=== PATIENT | male | born 1980 | race Caucasian/White ===

== ENCOUNTER 2024-03-29 18:12 | Emergency (ER) | payer OTHER, SELFPAY ==
--- NOTE | 2024-03-29 18:20 | ED.URI ---
HPI - URI/Sore Throat General Chief Complaint: Upper Respiratory Infection Stated Complaint: Congestion/Body Aches Time Seen by Provider: 03/29/24 18:34 Source: patient and RN notes reviewed Mode of arrival: ambulatory Limitations: no limitations History of Present Illness HPI Narrative: 44-year-old male presents with concern for 2 day history of head congestion, body aches, low-grade fever. Reports he had a negative COVID test at home. He reports he has taken itwv-tum-wnwnaxo medications with little relief MD elicited complaint: cough and other (bodyaches) Related Data Allergies Allergy/AdvReac Type Severity Reaction Status Date / Time Penicillins Allergy Unknown rash Unverified 12/01/13 13:12 Review of Systems Review of Systems: CONSTITUTIONAL: Reports malaise, chills, sweats EYES: Denies visual changes, redness, or discharge. ENT: Reports rhinorrhea, congestion. Denies sinus pain, otalgia and sore throat. CARDIOVASCULAR: Denies chest pain, palpitations, or edema. RESPIRATORY: Denies cough. Denies dyspnea. GASTROINTESTINAL: Denies abdominal pain, nausea, vomiting, diarrhea SKIN: Denies rash or itching. MUSCULOSKELETAL: Reports myalgia. NEUROLOGIC: Denies headache. All systems reviewed & are unremarkable except as noted in HPI and below PMFSH Comments At time of signature, agree with nursing past medical, surgical, social and family history. There is no relevant family history pertinent to the presenting complaint Exam Narrative: GENERAL: Well-appearing, well-nourished, and in no acute distress. HEAD: Normocephalic EYES: PERRLA, conjunctivae clear ENT: Nares clear. Mucous membranes moist. TM pearly sepulveda with dull light reflex bilaterally; no tragal tenderness. Oropharynx not erythematous without lesions. Tonsils not enlarged and without exudate, no drooling, no hoarseness, no trismus, uvula midline. NECK: Supple. No lymphadenopathy CHEST: Clear to auscultation, breath sounds equal. No wheezing, rhonchi, rales, or stridor. No respiratory distress, speaks in full sentences. HEART: Regular rate and rhythm. No murmur heard. SKIN: Warm, dry, no rash. NEURO: Alert and oriented x3. PSYCH: Normal mood and affect Course Course Emergency Course: Patient is aware of diagnosis, understands and agrees to treatment plan. Anticipatory guidance given. Patient agrees to follow-up as directed and is aware of reasons to seek care at the emergency department. Portions of this record may have been created with voice recognition software Level of Care: Express Care Visit Vital Signs Vital signs: Reviewed. MDM - URI/Sore Throat MDM Narrative Medical decision making narrative: Differential diagnosis considered: [place] virus, strep pharyngitis, allergic rhinitis, upper respiratory tract infection, sinusitis, rhinosinusitis, nasopharyngitis. viral pharyngitis, otitis media, otitis externa, pneumonia, bronchitis, viral cough syndrome, viral syndrome, and influenza. Exam findings show no acute concerns or changes; patient is non-toxic appearing and is in no distress. Patient is appropriate for outpatient treatment and follow-up. Lab Data Attestation: I reviewed the patient's lab results. Critical Care Time Critical Care Time Critical Care Time: No Discharge Plan Discharge Clinical Impression: Acute viral syndrome Patient Disposition: Home, Self-Care Condition: Stable Instructions: Viral Syndrome (ED) Additional Instructions: Your rapid COVID and flu tests are negative -Take strict precautions to prevent the spread of your virus. Be diligent about covering your cough (even when you are alone) and washing your hands frequently. -You may contagious until you have been symptom and/or fever free for 24 hours without fever reducing medicine -Alternate Ibuprofen and Tylenol for pain and fever relief (per package directions) -Drink plenty of fluid - drink fluid with electrolytes such as Gatorade or other oral re-hydra
[2024-03-29 18:21] VITALS: BP 122/85; PULSE 106; RESP 16; TEMP 36.4; O2SAT 100
[2024-03-29 18:56] LABS: EDINFLUASCREEN Negative; EDINFLUBSCREEN Negative
== END 2024-03-29 19:04 | disposition home or self-care (01) ==
PROVIDERS: Emergency Provider Nurse Practitioner
DX: B34.9 Viral infection, unspecified (principal); Z20.822 Contact with and (suspected) exposure to COVID-19
CPT/HCPCS: 87426; 87804; 99203; G0463

== ENCOUNTER 2024-09-15 10:15 | Emergency (ER) | payer OTHER, SELFPAY ==
--- NOTE | 2024-09-15 10:17 | ED_ITS ---
HPI - Wound/Laceration General Chief Complaint: Wound/Laceration Stated Complaint: Laceration to Finger Time Seen by Provider: 09/15/24 10:16 Source: patient Mode of arrival: ambulatory Limitations: no limitations History of Present Illness HPI narrative: Patient is a 44-year-old male who presents with left middle finger laceration. Patient was working with a washer and had finger caught in a leeroy. Near amputation. Bleeding controlled with washcloth. Tetanus shot is not up-to-date Related Data Home Medications ?Medication ?Instructions ?Recorded ?Confirmed ?Last Taken ?Type atorvastatin 20 mg tablet mg 09/15/24 Unknown History celecoxib 100 mg capsule mg 09/15/24 Unknown History cyclobenzaprine 10 mg tablet mg 09/15/24 Unknown History hydrocodone 5 mg-acetaminophen 325 tablet 09/15/24 Unknown History mg tablet lisinopril 10 mg tablet mg 09/15/24 Unknown History metoprolol succinate 50 mg mg PO 09/15/24 Unknown History tablet,extended release 24 hr Allergies Allergy/AdvReac Type Severity Reaction Status Date / Time Penicillins Allergy Unknown rash Unverified 12/01/13 13:12 Review of Systems 2 Review of Systems: All systems reviewed & are unremarkable except as noted in HPI and below Constitutional: Constitutional: Denies body ache(s), Denies chills, Denies fatigue, Denies fever(s), Denies headache(s), Denies malaise and Denies weakness Eyes: Eyes: Denies blurry vision, Denies irritation and Denies loss of vision ENT: Denies otalgia, Denies headache(s), Denies nasal discharge, Denies sinus pain and Denies sore throat Cardiovascular: Cardiovascular: Denies chest pain, Denies irregular heart rhythm and Denies dyspnea Respiratory: Respiratory: Denies dyspnea Gastrointestinal: Gastrointestinal: Denies abdominal pain, Denies melena, Denies hematochezia, Denies diarrhea, Denies nausea and Denies vomiting Musculoskeletal: Musculoskeletal: Denies back pain, Denies myalgias and Denies arthralgias Integumentary/Breasts: Skin/Breast: Denies pruritus, Denies rash and Reports wounds Neurologic: Denies headache(s), Denies loss of vision and Denies weakness Psychiatric: Psychiatric: Reports no additional psychiatric complaints Endocrine: Endocrine: Denies fatigue PMFSH Comments At time of signature, agree with nursing past medical, surgical, social and family history. There is no relevant family history pertinent to the presenting complaint. Exam 2 Const: General: cooperative, healthy appearing, comfortable, no acute distress and well nourished Nutritional Appearance: well nourished O rientation/consciousness: patient oriented x3 Limitations: no limitations HENMT: Head: normal to inspection, normocephalic and atraumatic Ears: h earing grossly normal bilaterally and external ears normal Face/Nose/Sinus: N ormal external nose present, normal facial exam and face symmetric Face and sinus: normal facial exam and face symmetric Mouth: Yes lip normal Eyes: General: appearance normal, both eyes and all related structures A lignment and Position: alignment normal and position normal Periorbital: p eriorbital findings normal Eyelids: eyelids normal Pupils: Equal, round and reactive pupils present EOM: EOMs intact bilaterally Neck: Neck: normal visual inspection, full ROM and supple Chest: Chest palpation & inspection: normal inspection of the chest Resp: Effort & Inspection: normal respiratory effort and able to speak in complete sentences Auscultation: clear to auscultation bilaterally Cardio: Rate: regular rate Rhythm: regular rhythm Heart sounds: S1 normal heart sound present and S2 normal heart sound present GI: Inspection: normal to inspection Skin: General skin exam: normal color and no rashes or lesions noted Neuro: General: patient oriented x3 and moves all extremities Cranial nerves: Yes Equal, round and reactive pupils present Speech: normal speech Gait exam (Neuro): Normal gait present Extrem: General: normal to inspection, full ROM and no edema Left upper extremity: hand laceration 3rd digit distal Details: linear, involving subcutaneous tissue, involving muscle tissue and with motor nerve function intact; not actively bleeding and with sensation not intact Hand/finger images: 1. Near amputation. Bleeding controlled with elevation. Psych: Appearance: grossly normal and well kempt Mental Status: mental status grossly normal Speech and movement: Normal speech and movement present Affect: normal affect Attitude: cooperative Thought process: Normal thought process present Course Course Emergency Course: Patient being transferred to [facility] for plastics and further evaluation and treatment of near amputation of finger tip. Portions of this record may have been created with voice recognition software Level of Care: Express Care Visit Vital Signs Vital signs: Vital Signs Temperature 35.5 C L 09/15/24 10:23 Pulse Rate 58 L 09/15/24 10:23 Respiratory Rate 09/15/24 10:23 Blood Pressure 121/53 L 09/15/24 10:23 Pulse Oximetry 97 09/15/24 10:23 Oxygen Delivery Room Air 09/15/24 10:23 Temperature 35.5 C L 09/15/24 10:23 Pulse Rate 58 L 09/15/24 10:23 Respiratory Rate 20 09/15/24 10:23 Blood Pressure 112/62 09/15/24 10:27 Pulse Oximetry 97 09/15/24 10:23 Oxygen Delivery Room Air 09/15/24 10:23 Reviewed Transfer Transfered to: [facility] Transportation: Other (Private) Transfer rationale: Patient being transferred to [facility] for plastics and further evaluation and treatment of near amputation of finger tip. Accepting physician: Renee DAMON MDM - Wound/Laceration MDM Narrative Medical decision making narrative: Patient being transferred to [facility] for plastics and further evaluation and treatment of near amputation of finger tip. Differential Diagnosis Differential diagnosis: Likely laceration and other (Near amputation) Medical Records Attestation: I reviewed the patient's medical records. 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
[2024-09-15 10:23] VITALS: BP 121/53; PULSE 58; RESP 20; TEMP 35.5; O2SAT 97
[2024-09-15 10:27] VITALS: BP 112/62
--- OUTSIDE RECORDS SUMMARY | 2024-09-15 10:52 | XMS_ITS | Clinical Summary ---
Author Organization [facility] Address [address] [place] [address] Care Team Providers Care Mcat Tutor Name Role Phone NadiaNoelLisa Rosie [facility] Primary Care Provider Source Comments [facility],non-owned Affiliates and Associated Physician Practices is amultiple site organization consisting of ambulatory clinics and hospital sitesin [place], [place], [place] and [place]. This disclosure is being madepursuant to the Care Everywhere program and may not contain all information available regarding this patient. Last updated 18.[facility] Allergies No known active allergies Medications * Be aware that medications may not be up to date on this document. Alwaysverify current medications with the patient. Medication Sig Dispensed Refills Start Date End Date Status cyclobenzaprine (Flexeril) 10 MG tablet Take 10 mg by mouth 2 times daily as needed 03/09/2022 Active diclofenac sodium (Voltaren) 1 % gel APPLY 2 GRAMS TOPICALLY TO THE AFFECTED AREA FOUR TIMES DAILY 09/23/2021 Active diclofenac sodium EC (Voltaren) 50 MG tablet Take 50 mg by mouth 2 times daily 02/20/2022 Active gabapentin (Neurontin) 300 MG capsule Take 300 mg by mouth 2 times daily 02/20/2022 Active HYDROcodone-acetamin ophen ([place]) 5-325 MG tablet hydrocodone 5 mg-acetaminophen 325 mg tablet TAKE 1 TABLET BY MOUTH TWICE DAILY NEEDED Active lisinopril (Prinivil; Zestril) 10 MG tablet Take 10 mg by mouth once daily 02/12/2022 Active metoprolol succinate XL 24hr (Toprol XL) 50 MG tablet Take 50 mg by mouth once daily 02/12/2022 Active naloxone HCl (Narcan) 4 MG/0.1ML nasal spray CALL 911. SPR CONTENTS OF ONE SPRAYER (0.1ML) INTO ONE NOSTRIL. REPEAT IN 2-3 MIN IF SYMPTOMS OF OPIOID EMERGENCY PERSIST, ALTERNATE NOSTRILS 10/15/2021 Active pravastatin (Pravachol) 10 MG tablet pravastatin 10 mg tablet TAKE 1 TABLET BY MOUTH EVERY DAY IN THE EVENING Active Social History Tobacco Use Types Packs/Day Years Used Date Smoking Tobacco: Never Smokeless Tobacco: Never Sex and Gender Information Value Date Recorded Sex Assigned at Not on file Gender Identity Not on file Sexual Orientation Not on file Last Filed Vital Signs Vital Sign Reading Time Taken Comments Blood Pressure 132/92 05/04/2016 8:38 AM CDT Pulse 97 05/04/2016 8:38 AM CDT Temperature 37 C (98.6 F) 05/04/2016 8:38 AM CDT Respiratory Rate - - Oxygen Saturation - - Inhaled Oxygen Concentration - - Weight 124.7 kg (275 lb) 05/04/2016 8:38 AM CDT Height 180.3 cm (5' 11 ) 05/04/2016 8:38 AM CDT Body Mass Index 38.35 05/04/2016 8:38 AM CDT Plan of Treatment Health Maintenance Due Date Last Done Comments COLOGUARD (AGES 45-75) - COL ON CA SCREENING 1979 COLON MONITORING 1979 COLONOSCOPY - COLON CA SCREENING 1979 CT COLONOGRAPHY - COLON CA SCREENING 1979 Colorectal Cancer Screening 1979 FIT - COLON CA SCREENING 1979 FLEX SIG - COLON CA SCREENING 1979 HIV SCREENING 1994 HEPATITIS C SCREENING 02/10/1997 DTAP/TDAP/TD VACCINES (1 - Tdap) 1998 HEPATITIS B VACCINE (1 of 3 - 19+ 3-dose series) 1998 COVID-19 VACCINE ( - 2023-2 5 season) 2024 INFLUENZA VACCINE (#1) 2024 DEPRESSION SCREENING 07/26/2024 ZOSTER VACCINE (1 of 2) 2029 HIB VACCINE Aged Out No longer eligi ble based on patient's age to complete this topic HPV VACCINE Aged Out No longer eligi ble based on patient's age to complete this topic MENINGOCOCCAL (Group B) VACCINE Aged Out No longer eligible based on patient's age to complete this topic MENINGOCOCCAL VACCINE Aged Out No fior marcus eligible based on patient's age to complete this topic PNEUMOCOCCAL VACCINE Aged Out No long er eligible based on patient's age to complete this topic Care Teams Mcat Tutor Relationship Specialty Start Date End Date Lisa Zuniga APNP-OFFICE ADMIN [address] [place] [address] PCP - General 10/03/21
--- OUTSIDE RECORDS SUMMARY | 2024-09-15 10:52 | XMS_ITS | Referral Summary ---
Author Organization [facility] Address [address] [place] [address] Care Team Providers Care Property Management Bookkeeper Name Role Phone NadiaNoelLisa Rosie [facility] Primary Care Provider Source Comments [facility],non-owned Affiliates and Associated Physician Practices is amultiple site organization consisting of ambulatory clinics and hospital sitesin [place], [place], [place]. This disclosure is being madepursuant to the Care Everywhere program and may not contain all information available regarding this patient. Last updated 18.[facility] Allergies No known active allergies Medications [...] 2 times daily 02/20/2022 Active HYDROcodone-acetamin ophen ([place]) 5-325 MG tablet hydrocodone 5 mg-acetaminophen 325 [...] 05/04/2016 8:38 AM CDT Plan of Treatment Not on file Care Teams Property Management Bookkeeper Relationship Specialty Start Date End Date Lisa Zuniga APNP-F[facility]NA[facility] HAND [address] [place] [phone] PCP - General 10/03/21
--- OUTSIDE RECORDS SUMMARY | 2024-09-15 10:52 | XMS_ITS | Encounter Summary ---
Author Organization [facility] Address [address] [place] [address] Care Team Providers Care Dental Resident Name Role Phone Lisa Zuniga-AUTOMOTIVE PRODUCT SPECIALIST Primary Care Provider Reason for Visit * Reason Onset Date Comments Appointment 06/03/2022 Encounter Details Date Type Department Care Team (Late st Contact Info) Description 06/03/2022 Telephone [facility] [address] [place] [address] Latoya Schmid MD [facility] [place] [id number] Appointment Social History Tobacco Use Types Packs/Day Years Used Date Smoking Tobacco: Never Smokeless Tobacco: Never Sex and Gender Information Value Date Recorded Sex Assigned at Not on file Gender Identity Not on file Sexual Orientation Not on file documented as of this encounter Miscellaneous Notes * Telephone Encounter - Meera Erickson - 06/03/2022 9:11 AM CST Mr. Garg is wanting to reschedule his appointment on 06-04-22 BOX OFFICE AGENT visit type. NICAL DOCUMENT WRITER documented in this encounter Plan of Treatment Not on file documented as of this encounter Visit Diagnoses Not on filedocumented in this encounter Care Teams Dental Resident Relationship Specialty Start Date End Date Lisa Zuniga APNP-AUTOMOTIVE PRODUCT SPECIALIST [address] [place] [id number] PCP - General 10/03/21 documented as of this encounter
--- OUTSIDE RECORDS SUMMARY | 2024-09-15 10:52 | XMS_ITS | Data Portability ---
[facility] Organization [facility] SAMANT[facility] Arana Address [address] [place] [address] Care Team Providers Care Music Education Director Name Role Phone ENEIDA GOLDMAN Internal Medicine Unavailable LISA DIAZ Primary Care Provider [phone] Assessment Encounter Date Assessment Date Assessment LastModified by Organization Details LastModified Time 10/22/2022 10/22/2022 Mr. Garg presented in office today for f/u appointment. Not available 10/22/2022 09:10:22 04/21/2023 04/21/2023 Mr. Garg presented in office today for f/u appointment. Not available 04/21/2023 10:53:15 10/20/2023 10/20/2023 Mr. Garg presented in office today for f/u appointment. Not available 10/20/2023 16:52:40 Plan of Treatment Reminders Order Date Submit Date Provider Last Modified By Organization Details Last Modified Time Details Appointments None recorded. Lab PSA, total, serum or plasma 2023 024 [facility], [address] [facility], [facility], [place], [address], 10:17:44 HbA1c (hemoglobi n A1c), blood 2023 024 [facility], [address] [facility], [facility], [place], [address], 10:17:43 HbA1c (hemoglobi n A1c), blood 2022 023 [facility], [address], [address], [place], [address], 3 06:15:48 lipid panel, serum 2022 023 [facility], [address], [address], [place], [address], 3 03:10:11 Referral gastroente rologist referral 2023 024 jessica Deal MD, [facility] , [address], [address], 4 16:17:23 Procedures None recorded. Surgeries None recorded. Imaging None recorded. Medication Orders lisinopril 10 mg tablet 2022 023 [id number], [address], [place], [place], [id number], 3 08:50:48 pravastati n 10 mg tablet [address] [id number], [address], [place], [place], [phone], 3 09:22:23 Patient TargetsNo targets recorded. Patient Instructions Encounter Date Encounter Id Patient Instructions Last Modified By Organization Details Last Modified Time 10/22/2022 [id number] A healthy lifestyle: care instructions [place] [id number] Not available 10/22/2022 08:50:43 - Always present to ER or Urgent Care with any progression of/alarming symptoms, significant changes in symptoms or any concerning or urgent matters Not available 10/22/2022 08:51:03 04/21/2023 [id number] A healthy lifestyle: care instructions Not available 04/21/2023 09:05:24 - Always present to ER or Urgent Care with any progression of/alarming symptoms, significant changes in symptoms or any concerning or urgent matters Not available 04/21/2023 09:01:40 10/20/2023 [id number] A healthy lifestyle: care instructions Not available 10/20/2023 16:36:24 - Always present to ER or Urgent Care with any progression of/alarming symptoms, significant changes in symptoms or any concerning or urgent matters Not available 10/20/2023 16:40:32 11/18/2023 [id number] A healthy lifestyle: care instructions [email or web address] Not available 11/18/2023 09:38:41 starting a weigh t loss plan: care instructions [email or web address] Not available 11/18/2023 09:38:40 On the date of this encounter, I was immediately available to assist the resident/fellow in the care of the patient, and have reviewed and agree with the resident s findings and plan of care. ~MD Johnny [email or web address] Not available 11/18/2023 09:31:47 05/01/2024 [id number] A healthy lifestyle: care instructions [email or web address] Not available 05/01/2024 10:09:43 starting a weigh t loss plan: care instructions [email or web address] Not available 05/01/2024 10:09:43 learning about the mediterranean diet jiskander Not available 05/01/2024 10:09:43 learning about high blood pressure [email or web address] Not available 05/01/2024 10:09:43 I was present in the clinic to discuss this patient at the time of the visit. 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 Referral for Screening for malignant neoplasm of colon Referring Physician: Zulma Silva, Mental Health Aide, Encounter Date: 05/01/2024 Results Created Date Observation Date Name Description Value Unit Range Abnormal Flag Note LastModifiedBy Organization Detail LastModifiedTime 04/21/2004/21/2023 LIPID PANEL cholesterol, total 179 mg/dL 100-19 9 Not Available [facility] Department [address] [place], [address], 04/22/2023 03:10:11 04/21/2004/21/2023 LIPID PANEL triglyceride s 236 mg/dL 0-149 above high normal Not Available [facility] Department [address] [place] [address], [address], 04/22/2023 03:10:11 04/21/20 23 04/21/2023 LIPID PANEL HDL cholesterol 37 mg/dL 40-999 below low normal Not Available [facility] Department [address] [place], [address], 04/22/2023 03:10:11 04/21/20 23 04/21/2023 LIPID PANEL VLDL cholesterol eulogio 47 mg/dL 5-40 above high normal Not Available [facility] Department [address] [place], [address], 04/22/2023 03:10:11 04/21/20 23 04/21/2023 LIPID PANEL LDL chol calc ([facility]) 129 mg/dL 0-99 above high normal Not Available [facility] Department [address] [place], [address], 04/22/2023 03:10:11 04/21/2004/22/2023 HEMOG LOBIN A1C hemoglobin A1C 6.0 % 4.8-5. 6 above high normal Predi abete s: 5.7 - 6.4 Diabe mili: >6.4 Glyce ann contr ol for adult s with diabe mili: <7.0 Not Available [facility] ([facility]) [address] [place], [address], 04/22/2023 06:15:48 05/01/20 24 05/02/2024 HEMOG LOBIN A1C hemoglobin A1C 6.0 % 4.8-5. 6 above high normal Predi abete s: 5.7 - 6.4 Diabe mili: >6.4 Glyce ann contr ol for adult s with diabe mili: <7.0 Not Available [facility] ([facility]) [address] [place], [address], 05/02/2024 10:17:43 05/01/20 24 05/02/2024 PROST ATE-S PECIF IC AG prostate specific Ag 0.8 NG/mL 0.0-4. 0 Clay ECLIA metho dolog y. Accor ding to the Ameri can Urolo gical Assoc iatio n, Serum PSA shoul d decre ase and remai n at undet ectab le level s after radic al prost atect erica. The AUA defin es bioch emica l recur rence as an initi al PSA value 0.2 ng/mL or great er follo wed by a subse quent confi rmato ry PSA value 0.2 ng/mL or great er. Value s obtai gabriel with diffe rent assay metho ds or kits canno t be used inter cruz eably . Resul ts canno t be inter prete d as absol wiyot evide nce of the prese nce or absen ce of kika loaiza se. Not Available [facility] ([facility]) [address] [facility], [place], [address], 05/02/2024 10:17:44 Result Notes None recorded. Problems Name Problem SNOMED Code Status Onset Date Resolution Date Notes Provider Name and Address Organization Details Recorded Time Localized swelling, mass and lump, lower limb Active 2018 Indra abreu, [place] - [facility] 9 13:34:55 Insomnia 661044510 Active 2018 LISA DIAZ NP Attn: Emmie brown,[address] [place], [address], [place] [facility] 2 15:45:08 Hyperlipidemia 46502732 Active 2020 LISA DIAZ NP Attn: Emmie brown,[address] [place], [address], [place] [facility] 2 15:45:08 Prediabetes 855706047 Active 2023 ZULMA SILVA MD Attn: Emmie brown,[address] [place], [address], [place] 4 09:40:57 Chronic low back pain 914379317 Active 2023 ZULMA SILVA MD Attn: Emmie brown,[address] [facility], [place], [address], [facility] - SI 4 18:22:52 Lumbar spondylosis 916222131 Active 2023 ZULMA SILVA MD Attn: Emmie brown,[address] [place], [address], [facility] - SI 4 18:23:31 Essential hypertension 64758528 Active 2016 LISA DIAZ NP Attn: Emmie brown,[address] [facility], [place], [address], [facility] - SI 2 15:45:08 Problem Notes None recorded. Procedures Surgical History Date Name Laterality Status Provider Name and Address Organization Details Recorded Time Tonsillectomy completed Essie Murry MA [facility] 09/14/2016 09:20:28 Imaging Results None recorded. Procedure Notes None recorded. Medical Equipment None Reported. Allergies No known drug allergies Medications Name Sig Start Date Stop Date Status Note LastModified by Organization Details LastModified Time cyclobenzap rine 10 mg tablet TAKE 1 TABLET BY MOUTH TWICE DAILY NEEDED active Not Available Not Available No t Available atorvastati n 20 mg tablet TAKE 1 TABLET BY MOUTH EVERY EVENING active Not Available Not Available No t Available clindamycin HCl 300 mg capsule TAKE 1 CAPSULE BY MOUTH EVERY 6 HOURS 01/21 completed Not Available Not Available Not Available ibuprofen 800 mg tablet TAKE 1 TABLET BY MOUTH THREE TIMES DAILY FOR 10 DAYS 10/22 completed Not Available Not Available Not Available metoprolol succinate ER 50 mg tablet,exte nded release 24 hr take one tablet by mouth daily 2024 active Not Available Not Available Not Avai lable hydrocodone 5 mg-acetamin ophen 325 mg tablet TAKE 1 TABLET BY MOUTH THREE TIMES DAILY NEEDED active Not Available Not Available No t Available hydroxyzine HCl 50 mg tablet TAKE 1 TABLET BY MOUTH AT DINNER 10/19 completed Not Available Not Available Not Available pravastatin 10 mg tablet TAKE 1 TABLET BY MOUTH EVERY DAY IN THE EVENING 05/19 completed Not Available Not Available Not Available lorazepam 2 mg tablet 10/19 completed Not Available Not Available Not Available hydrocodone 7.5 mg-acetamin ophen 325 mg tablet TAKE 1 TABLET BY MOUTH EVERY 8 HOURS NEEDED active Not Available Not Available No t Available trazodone 150 mg tablet Take 1 tablet every day by oral route at bedtime. 03/01 completed Not Available Not Available Not Available lisinopril 10 mg tablet TAKE 1 TABLET BY MOUTH EVERY DAY 2024 active Not Available Not Available Not Avai lable lidocaine 5 % topical patch UNWRAP AND APPLY 1 PATCH TO DRY INTACT SKIN ONCE A DAY 10/22 completed Not Available Not Available Not Available gabapentin 300 mg capsule TAKE 1 CAPSULE BY MOUTH TWICE DAILY 04/21 completed Not Available Not Available Not Available diclofenac sodium 50 mg tablet,jennifer yed release TAKE 1 TABLET BY MOUTH TWICE DAILY 10/19 completed Not Available Not Available Not Available metoprolol succinate ER 25 mg tablet,exte nded release 24 hr TAKE 1 TABLET BY MOUTH EVERY DAY 03/01 completed Not Available Not Available Not Available celecoxib 100 mg capsule TAKE 1 CAPSULE BY MOUTH TWICE DAILY active Not Available Not Available No t Available diclofenac 1 % topical gel APPLY 2 GRAMS TOPICALLY TO THE AFFECTED AREA FOUR TIMES DAILY 11/17 completed Not Available Not Available Not Available naloxone 4 mg/actuatio n nasal spray CALL 911. SPR CONTENTS OF ONE SPRAYER (0.1ML) INTO ONE NOSTRIL. REPEAT IN 2-3 MIN IF SYMPTOMS OF OPIOID EMERGENCY PERSIST, ALTERNATE NOSTRILS 05/01 completed Not Available Not Available Not Available Vitals Date Recorded Body height Body mass index (BMI) Body weight Respiratory rate Body temperature Heart rate Oxygen saturation Oxygen saturation in Arterial blood by Pulse oximetry Systolic blood pressure Diastolic blood pressure Provider Name and Address Organization Details Last Updated DateTime 3 180.34 cm 41 kg/m2 307057. 56 g 16 /min 97.1 [degF] 73 /min 98 % 98 % 119 mm[Hg] 79 mm[Hg] Cheryl Mitchell [place] - [facility] 3 08:45:17 Date Recorded Body height Respiratory rate Body mass index (BMI) Body weight Body temperature Heart rate Oxygen saturation Oxygen saturation in Arterial blood by Pulse oximetry Systolic blood pressure Diastolic blood pressure Provider Name and Address Organization Details Last Updated DateTime 3 180.34 cm 16 /min 41.1 kg/m2 981126. 31 g 97.1 [degF] 71 /min 96 % 96 % 129 mm[Hg] 84 mm[Hg] Cheryl Mitchell MA [facility] 3 08:58:47 Date Recorded Body height Respiratory rate Body mass index (BMI) Body weight Body temperature Heart rate Oxygen saturation Oxygen saturation in Arterial blood by Pulse oximetry Systolic blood pressure Diastolic blood pressure Provider Name and Address Organization Details Last Updated DateTime 4 180.34 cm 16 /min 43.1 kg/m2 304115. 79 g 96.9 [degF] 83 /min 94 % 94 % 120 mm[Hg] 77 mm[Hg] Cheryl Mitchell MA [facility] 4 16:28:55 Date Recorded Body height Body mass index (BMI) Body weight Oxygen saturation Oxygen saturation in Arterial blood by Pulse oximetry Heart rate Body temperature Respiratory rate Systolic blood pressure Diastolic blood pressure Provider Name and Address Organization Details Last Updated DateTime 4 180.34 cm 42.1 kg/m2 595776. 45 g 96 % 96 % 72 /min 98.1 [degF] 16 /min 131 mm[Hg] 87 mm[Hg] Clementine Tinsley MA [facility] 4 09:05:48 Date Recorded Body height Body mass index (BMI) Body weight Body temperature Heart rate Oxygen saturation Oxygen saturation in Arterial blood by Pulse oximetry Respiratory rate Systolic blood pressure Diastolic blood pressure Provider Name and Address Organization Details Last Updated DateTime 4 179.07 cm 43.6 kg/m2 562350. 5 g 96.6 [degF] 75 /min 99 % 99 % 21 /min 130 mm[Hg] 89 mm[Hg] MARICARMEN Devlin [facility] 4 09:48:41 Social History Question Answer Notes LastModified by Organizat ion Details LastModified Time Tobacco Smoking Status Never Smoker EVI Tom, [facility] 09/14/2016 09:20:08 Do You Have An Advance Directive? No Information n ot available 01/21/2021 What Is Your Level Of Alcohol Consumption? None Information not available 09/14/2016 Are You Blind Or Do You Have Difficulty Seeing? No Information n ot available 01/21/2021 What Is Your Level Of Caffeine Consumption? Moderate Information not available 01/21/2021 In The 14 Days Before Symptom Onset, Have You Had Close Contact With A Laboratory-confirm ed COVID-19 While That Case Was Ill? No Information n ot available 02/18/2021 In The 14 Days Before Symptom Onset, Have You Had Close Contact With A Person Who Is Under Investigation For COVID-19 While That Person Was Ill? No Information not available 02/18/2021 Have You Been To An Area Known To Be High Risk For COVID-19? No Information not available 02/18/2021 Are You Currently Employed? Yes Information not available 01/21/2021 Are You Deaf Or Do You Have Serious Difficulty Hearing? No Information not available 01/21/2021 What Type Of Diet Are You Following? 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 Yes Information not available 01/21/2021 What Was The Date Of Your Most Recent Tobacco Screening? 05/01/2024 [email or web address] Information not available 05/01/2024 What Is Your Relationship Status? Information not available 01/21/2021 Do You Use Your Seat Belt Or Car Seat Routinely? No Information not available 01/21/2021 Are You Sexually Active? Yes Information not available 01/21/2021 Do You Have Smoke And Carbon Monoxide Detectors In Your Home? Yes Information not available 01/21/2021 Are You Passively Exposed To Smoke? No Information no t available 01/21/2021 Do You Feel Stressed (tense, Restless, Nervous, Or Anxious, Or Unable To Sleep At Night)? [id number] Information not available 01/21/2021 Do You Use Any Illicit Or Recreational Drugs? Yes [email or web address] Information not available 11/18/2023 Do You Use Sunscreen Routinely? Yes Information not available 01/21/2021 Has Tobacco Cessation Counseling Been Provided? No Information not available 04/28/2022 Do You Or Have You Ever Used Any Other Forms Of Tobacco Or Nicotine? No Information not available 10/22/2022 Sex: Male Functional Status Question Answer Note LastModified by Organization D etails LastModified Time Are you able to care for yourself? Yes Information not available 01/21/2021 What is your exercise level? Moderate Information not available 01/21/2021 Mental Status None recorded. Family History Relationship Description Onset Age of this Age Resolved Age Notes LastModified by Organization Details LastModified Time Father Hypertensive disorder [email or web address] Not available 2016 09:19:45 Father Hypercholest erolemia [email or web address] Not available 2016 09:19:55 Mother Hypertensive disorder [email or web address] Not available 2016 09:19:45 Mother Hypercholest erolemia [email or web address] Not available 2016 09:19:55 Mother Migraine Not availabl e 09/14/2016 09:20:02 Notes:05/01/24 Medical History Condition Response High Blood Pressure Y Past Encounters Encounter ID Performer Location Encounter Start Date Encounter Closed Date Diagnosis/Indication Diagnosis SNOMED-CT Code Diagnosis ICD10 Code Diagnosis Note [id number] Indra Pruitt [facility] [address] [place] [address] 09/14/2016 08:57:48 09/14/2016 14:07:22 Essential hypertension 23448195 I10 Adult [facility] th examination 018315986 Z00.00 [id number] Indra Pruitt [facility] [address] [place] [address] 03/15/2017 09:20:23 03/15/2017 16:19:26 Essential hypertension 10310549 I10 [id number] Indra Pruitt [facility] [address] [place] [address] 09/16/2017 16:45:02 09/20/2017 09:59:48 Essential hypertension 16805228 I10 [id number] Essie Murry MA [facility] [address] [place] [address] 09/23/2017 09:07:31 09/24/2017 10:12:04 [id number] Indra Singh 14 IM [address] [facility] [place] [address] 09/01/2018 10:35:19 09/01/2018 16:20:31 Essential hypertension 10767552 I10 Localized swelling, mass and lump, lower limb 906835331 R22.41 Insomnia 758316996 G47.0 0 Adult [facility] examination 892156033 Z00.00 [id number] Indra Singh 14 IM [address] [facility] [place] [address] 03/01/2019 08:23:33 03/02/2019 10:48:58 Insomnia 359287383 G47.00 Essential hypertension 77894038 I10 [id number] Indra Singh 14 IM [address] [facility] [place] [address] 07/08/2020 09:03:20 07/09/2020 12:29:24 Essential hypertension 16120604 I10 Toothache 97231173 K08.8 9 Make appt with dentist Adult [facility] examination 988270243 Z00.00 [id number] JIA Escalante [address] [place] [address] 07/31/2020 13:34:58 08/01/2020 07:38:09 Suspected COVID-19 946218861 Z03.89 [id number] LISA DIAZ NP [facility] [address] [place] [address] 01/21/2021 08:27:47 01/22/2021 12:41:36 Essential hypertension 44515155 I10 - b/p in office today 142/90.- Continue medication as prescribed and diet/exerc ise as previously discussed. - Take occasional BP s, call if consistent ly >140/90.- Discussed reasons for sooner f/u than 6 months.- Patient verbalizes understand ing. [id number] JIA De La GarzaC cristopher [address] [place] [address] 02/18/2021 11:37:33 02/24/2021 23:01:00 Viral screening 427139610 Z11.52 Viral syndrome 815024293 B34.9 [id number] TEODORO PALMA 14 IM [address] [facility] [place] [address] 07/10/2021 08:29:03 07/19/2021 20:44:33 Essential hypertension 65724394 I10 - b/p in office today 146/96- Continue medication as prescribed and diet/exerc ise as previously discussed. - Take occasional BP s, call if consistent ly >140/90.- Discussed reasons for sooner f/u than 6 months.- Patient verbalizes understand ing. Low back pain 789887795 M54.50 - Apply heat to low back 10-15 minutes 3 times a day. - No heavy lifting over 10 LBS. - Stretching exercises per handout twice daily. ( take muscle relaxer/pa in med- 15 min prior) - Avoid bending or twisting at the waist; keep hips and shoulders aligned at all times. - Avoid sitting if possible, unless it feels better than standing. - Do not do anything that makes your symptoms worse. - RTC for worsening symptoms Diabetes m ellitus screening 202635710 Z13.1 Hyperlipid emia screening 049755821 Z13.220 Insomnia 345127295 G47.0 0 - rx refill- Take bedtime medication before or at 10 PM- Avoid anything that will energize you or activate you- Sleep 6-8 hours a night (this is when short-term memory turns into long-term memory) Abnormal t hyroid hormone 701211069 R94.6 [id number] TEODORO PALMA 14 IM [address] [facility] [place] [address] 09/23/2021 16:21:17 09/25/2021 10:15:19 Essential hypertension 99094677 I10 - b/p in office today 146/96- Continue medication as prescribed and diet/exerc ise as previously discussed. - Take occasional BP s, call if consistent ly >140/90.- Discussed reasons for sooner f/u than 6 months.- Patient verbalizes understand ing. Low back pain 646504964 M54.50 - Apply heat to low back 10-15 minutes 3 times a day. - No heavy lifting over 10 LBS. - Stretching exercises per handout twice daily. ( take muscle relaxer/pa in med- 15 min prior) - Avoid bending or twisting at the waist; keep hips and shoulders aligned at all times. - Avoid sitting if possible, unless it feels better than standing. - Do not do anything that makes your symptoms worse. - RTC for worsening symptoms Pain of bi lateral knee joints 0160786153 42569 M25.561 M25.562 - Will order x-ray. - Educated on RICE method and OTC treatments . - Patient to RTC if condition worsens or does not improve. - Will call results of x-ray to patient. Disorder of nail 2641437 8 L60.9 Melanocyti c nevus of skin 003153899 D22.9 Vasectomy requested 1839 01013 Z30.2 [id number] LISA DIAZ NP [place] [id number] [place] [address] 10/27/2021 16:23:04 10/30/2021 15:26:07 Essential hypertension 51609895 I10 - b/p in office today 130/80- Continue medication as prescribed and diet/exerc ise as previously discussed. - Take occasional BP s, call if consistent ly >140/90.- Discussed reasons for sooner f/u than 6 months.- Patient verbalizes understand ing. [id number] LISA DIAZ NP [facility] [address] [place] [address] 04/28/2022 15:30:47 05/04/2022 10:41:34 Essential hypertension 15993866 I10 - b/p in office today 140/82, Patient states b/p runs 120s, 130s at home.- Continue medication as prescribed and diet/exerc ise as previously discussed. - Take occasional BP s, call if consistent ly >140/90.- Discussed reasons for sooner f/u than 6 months.- Patient verbalizes understand ing. Morbid obesity 734040556 E66.01 advised low fat, low cholestero l, low carb diet, regular exercise and weight reduction. [id number] LISA DIAZ NP [facility] [address] [place] [address] 10/22/2022 08:36:15 10/23/2022 11:17:17 Essential hypertension 27237838 I10 - b/p in office today 119/79- Continue medication as prescribed and diet/exerc ise as previously discussed. - Take occasional BP s, call if consistent ly >140/90.- Discussed reasons for sooner f/u than 6 months.- Patient verbalizes understand ing. Morbid obesity 935887645 E66.01 advised low fat, low cholestero l, low carb diet, regular exercise and weight reduction. Hyperlipidemia 58215335 E78.5 [id number] LISA DIAZ NP [place] [address] [place] [address] 04/21/2023 08:48:09 04/22/2023 09:05:24 Essential hypertension 77499132 I10 - b/p in office today 129/84- Continue medication as prescribed and diet/exerc ise as previously discussed. - Take occasional BP s, call if consistent ly >140/90.- Discussed reasons for sooner f/u than 6 months.- Patient verbalizes understand ing. Morbid obesity 048469438 E66.01 advised low fat, low cholestero l, low carb diet, regular exercise and weight reduction. Prediabetes 443770442 R7 3.03 Hyperlipidemia 18320186 E78.5 Influenza vaccination declined 126590069 Z28.21 - Offered and discussed benefits of flu vaccine. Patient verbalized undertandi ng , however respectful ly declined. [id number] LISA DIAZ NP [facility] [address] [place] [address] 10/20/2023 16:01:40 10/22/2023 15:32:42 Essential hypertension 05632746 I10 - b/p in office today 120/77- Continue medication as prescribed and diet/exerc ise as previously discussed. - Take occasional BP s, call if consistent ly >140/90.- Discussed reasons for sooner f/u than 6 months.- Patient verbalizes understand ing. Morbid obesity 798508913 E66.01 advised low fat, low cholestero l, low carb diet, regular exercise and weight reduction. [id number] MD Rosmery Barnett [address] [place] [address] 11/18/2023 08:36:23 11/26/2023 10:33:22 Overweight [id number] E66.3 BMI of 42.1 today with BMI of 43.1 on october 20, 2023. Has been loosing weight. Discussed healthy eating, reinforced exercise routine, mentioned walk it out wednesday with Dr Mane. Follow up in march. Adult heal th examination [id number] Z00.00 Essential hypertension 84070697 I10 Hx of HTN. on Lisinopril . BP today 131/87 and well controlled . Denies needing refills. Hyperlipidemia [id number] E78.5 Hx of hyperlipid emia on atorvastat in 20 mg daily. Last lipid panel in 03/2023. Will repeat this march and adjust statin dose per ACVSD risk. Denies needing refills. Chronic low back pain 27 [id number] M54.50 Chronic low back pain since age 4 and follows up with pain management monthly. Last pain management note shows a dianogsis of lumbar DDD, lumbar radicular pain and currently prescribed hydrocodon 5 mg-Tylenol 325 mg, Celecoxib and cyclobenza ofelia. Prediabetes [id number] R7 3.03 A1c of 6% in March 2023. Will follow up in march 2024 and will recheck a1c. [id number] Yusra Henderson MD [place] [address]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
--- OUTSIDE RECORDS SUMMARY | 2024-09-15 10:52 | XMS_ITS | Clinical Summary ---
Author Organization [facility] Address [address] [place] [address] Phone Care Team Providers Care Product Strategy Director Name Role Phone Unavailable Primary Care Provider Unavailabl e Social History Tobacco Use Types Packs/Day Years Used Date Smoking Tobacco: Never Assessed Sex and Gender Information Value Date Recorded Sex Assigned at Not on file Legal Sex Male 5:43 PM CDT Gender Identity Not on file Sexual Orientation Not on file Plan of Treatment Health Maintenance Due Date Last Done Comments Hepatitis C Virus (HCV) Screening 1979 TdaP Immunization 1979 Hepatitis B Immunization (1 of 3 - 19+ 3-dose series) 1998 Colonoscopy 02/16/2024 Colorectal Cancer Screening 02/16/2024 Influenza Immunization (#1) 2024 SARS-COV-2 Immunization ( season) 2024 Respiratory Syncytial Virus (RSV) Immunization (Adult) (1 - 1-dose 75+ series) 2054 Meningococcal Immunization (ACWY) Aged Out No longer eligible based on patient's age to complete this topic Pneumococcal Immunization Combined Aged Out No longer eligible based on patient's age to complete this topic Rotavirus Immunization Aged Out No lo nger eligible based on patient's age to complete this topic
--- OUTSIDE RECORDS SUMMARY | 2024-09-15 10:52 | XMS_ITS | Patient Health Summary ---
Author Organization [facility] Address [address] [place] [place] [address] Care Team Providers Care Family Intervention Specialist Name Role Phone NadiaNoelLisa Rosie FOWLER-BUSINESS SUPPORT Primary Care Provider Note from [facility],non-owned Affiliates and Associated Physician Practices is amultiple site organization consisting of ambulatory clinics and hospital sitesin [place], [place], [place] and [place]. This disclosure is being madepursuant to the Care Everywhere program and may not contain all information available regarding this patient. Last updated 18.[facility] Allergies No known active allergies Medications * Be aware that medications may not be up to date on this document. Alwaysverify current medications with the patient. * cyclobenzaprine (Flexeril) 10 MG tablet(Started 03/09/2022) Take 10 mg by mouth 2 times daily as needed * diclofenac sodium (Voltaren) 1 % gel(Started 09/23/2021) APPLY 2 GRAMS TOPICALLY TO THE AFFECTED AREA FOUR TIMES DAILY * diclofenac sodium EC (Voltaren) 50 MG tablet(Started 02/20/2022) Take 50 mg by mouth 2 times daily * gabapentin (Neurontin) 300 MG capsule(Started 02/20/2022) Take 300 mg by mouth 2 times daily * HYDROcodone-acetaminophen ([place]ston) 5-325 MG tablet hydrocodone 5 mg-acetaminophen 325 mg tablet TAKE 1 TABLET BY MOUTH TWICE DAILY NEEDED * lisinopril (Prinivil; Zestril) 10 MG tablet(Started 02/12/2022) Take 10 mg by mouth once daily * metoprolol succinate XL 24hr (Toprol XL) 50 MG tablet(Started 02/12/2022) Take 50 mg by mouth once daily * naloxone HCl (Narcan) 4 MG/0.1ML nasal spray(Started 10/15/2021) CALL 911. SPR CONTENTS OF ONE SPRAYER (0.1ML) INTO ONE NOSTRIL. REPEAT IN 2-3 MIN IF SYMPTOMS OF OPIOID EMERGENCY PERSIST, ALTERNATE NOSTRILS * pravastatin (Pravachol) 10 MG tablet pravastatin 10 mg tablet TAKE 1 TABLET BY MOUTH EVERY DAY IN THE EVENING Social History Tobacco Use Types Packs/Day Years [...] Mass Index 38.35 05/04/2016 8:38 AM CDT Procedures * NC TANGNTL BX SKIN EA SEP ADDL(Performed 04/02/2022) Performed for Neoplasm of uncertain behavior of skin * NC TANGNTL BX SKIN SINGLE LES(Performed 04/02/2022) Performed for Neoplasm of uncertain behavior of skin * DERMATOPATHOLOGY(Performed 03/26/2022) Performed for Neoplasm of uncertain behavior of skin Results * NC TANGNTL BX SKIN SINGLE LES, NC TANGNTL BX SKIN EA SEP ADDL (04/02/2022 10:43 PM CDT) Narrative Latoya Schmid MD - 04/02/2022 10:43 PM CDT Latoya Schmid MD 04/02/2022 10:44 PM Risks, benefits and alternatives to shave biopsy were discussed with the patient. Verbal consent was obtained. Encounter Diagnoses Name Primary? Neoplasm of uncertain behavior of skin Yes Multiple nevi Ramirez angioma Lentigines Seborrheic keratosis Skin tag Location: L upper back, R nasal ala, and R cheek Skin prep: Alcohol Anesthesia: 1% lidocaine with epinephrine Hemostasis: Aluminum chloride Dressing and wound care discussed. Specimen(s) placed in a patient labeled container and sent to [facility] Dermatopathology. Patient agrees to phone call for results and message if not available. Latoya Schmid MD Latoya Schmid MD PROCEDURE/BEVERLY R SURGICAL ORDERABLES * DERMATOPATHOLOGY (Specimen Count = 3) (03/26/2022 3:33 AM CDT) Case Report Dermatopathology Report Case: [id number] Authorizing Provider: Latoya Schmid, Collected: 03/26/2022 03:33 AM Ordering Location: [facility] Received: 03/28/2022 12:17 PM Dermatology Pathologist: Latoya Schmid MD Specimens: A) - Skin, right nasal ala B) - Skin, left upper back C) - Skin, right cheek 2 3:17 PM CDT DERMATOPATHOLOGY LABORATORY Final Diagnosis Specimen A. SKIN, right nasal ala: ANGIOFIBROMA (FIBROUS PAPULE) (D21.0) Specimen B. SKIN, left upper back: LENTIGINOUS MELANOCYTIC NEVUS, COMPOUND TYPE, IRRITATED (D22.5) Specimen C. SKIN, right cheek: INTRADERMAL MELANOCYTIC NEVUS (D22.39) 2 3:17 PM CDT DERMATOPATHOLOGY LABORATORY Clinical History A: Fibrous Papule vs. Tricholemmoma vs. VV vs. BCC B: Nevus vs. SK, r/o Melanoma C: Irritated Nevus, r/o Atypia 2 3:17 PM CDT DERMATOPATHOLOGY LABORATORY Gross Description Specimen A: Received is one formalin filled container labeled with the patient's name and designated right nasal ala. The specimen consists of a shave biopsy measuring 3e2p2pz. Jar 0. Specimen B: Received is one formalin filled container labeled with the patient's name and designated left upper back. The specimen consists of a shave biopsy measuring 75e2g8pw. Jar 0. Specimen C: Received is one formalin filled container labeled with the patient's name and designated right cheek. The specimen consists of a shave biopsy measuring 6h6h4hh. Jar 0. 2 3:17 PM T DERMATOPATHOLOGY LABORATORY Microscopic Description Specimen A. SKIN, right nasal ala: This dome-shaped lesion contains dilated blood vessels, coarse collagen bundles, and stellate fibroblasts. Specimen B. SKIN, left upper back: This is a compound nevus. There is melanin pigment in the stratum corneum. There is a lentiginous proliferation of melanocytes between nevus nests of cells along the dermal epidermal junction. There is underlying fibroplasia of the papillary dermis. The intradermal component is bland in appearance and matures with depth. (Compound Adelso's Nevus) Specimen C. SKIN, right cheek: There are nests of cytologically bland melanocytes within the dermis that mature with depth. 2 3:17 PM T DERMATOPATHOLOGY LABORATORY Disclaimer An external and internal positive and negative controls are appropriate for the histochemical, immunohistochemical and immunofluorescence stain(s) in this case (if any), except where stated explicitly. The performance characteristics of the stain(s) cited in this report were developed and its performance characteristic determined by the Dermatopathology Laboratory at [facility], directed by Dr. Herber Marie. These tests need not be, and therefore are not, approved by the [place] Food and Drug Administration. The tests are used for clinical purposes. Billing Codes Specimen Charges Stain Charges 73770 [id number] 1 1 1 2 3:17 PM CDT DERMATOPATHOLOGY LABORATORY Embedded Images 2 3:17 PM CDT DERMATOPATHOLOGY LABORATORY Pathology/Cytology TISSUE SPECIMEN FROM SKIN / Unknown 03/26/2022 3:33 AM CDT 03/28/2022 12:17 PM CDT Miscellaneous samples (specimen) TISSUE SPECIMEN FROM SKIN / Unknown 03/26/2022 3:33 AM CDT 03/28/2022 12:17 PM CDT Miscellaneous samples (specimen) TISSUE SPECIMEN FROM SKIN / Unknown 03/26/2022 3:33 AM CDT 03/28/2022 12:17 PM CDT Latoya Schmid MD LAB - PATHOLOG Y/CYTOLOGY ORDERABLES DERMATOPATHOLOGY LABORATORY [facility] - Department of Dermatology [facility] Special[facility], [address]rd [address] [phone] Care Teams Family Intervention Specialist Relationship Specialty Start Date End Date Lisa Zuniga APNP-BUSINESS SUPPORT [address] [place] [address] PCP - General 10/03/21
== END 2024-09-15 10:45 | disposition short-term general hospital (02) ==
PROVIDERS: Emergency Provider Nurse Practitioner Family
DX: S61.213A Laceration without foreign body of left middle finger without damage to nail, initial encounter (principal); Z79.899 Other long term (current) drug therapy; W45.8XXA Other foreign body or object entering through skin, initial encounter
CPT/HCPCS: 99212; G0463